=== PATIENT | male | born 1990 | race Two or more races ===

== ENCOUNTER 2019-06-07 12:56 | Emergency (ER) | payer BC ==
--- OUTSIDE RECORDS SUMMARY | 2019-06-07 13:00 | XMS REPORT | Continuity of Care Document ---
:1990 External Reference #:[id number] Author Name Bandar Svetlana Care Team Providers Name Role Phone Anabela Bright MD Primary Care Physician Unavailable Payers Date Identification Numbers Payment Provider Subscriber Effective: 2018 Policy Number: [id number] [employer] Saul Cates PayID: [id number] [address] [address] [place] [address] Social History Type Date Description Comments Sex Unknown Tobacco Use Start: Unknown Patient has never smoked Smoking Status Reviewed: 06/05/19 Patient has never smoked Vital Signs Date Vital Result Comment 06/05/2019 10:53am Height 69 inches 5'9" Weight 256.00 lb Heart Rate 69 /min BP Systolic 121 mmHg left arm sitting BP Diastolic 74 mmHg left arm sitting BMI (Body Mass Index) 37.8 kg/m2
[2019-06-07 13:10] VITALS: BP 119/67
--- NOTE | 2019-06-07 14:51 | UC ---
Abdominal Pain Male HPI - HPI Summary HPI Summary: Pt presents with 4 months of progressive abdominal pain. Pt states pain has increased in intensity and frequency this week. pt states feels nausea, no vomiting. STates stoools have been soft and has reported to his SO blood in the stool a few instances. no fever, chills pt states pain is diffuse, LUQ, RLQ no back radiation. No dysuria, hematuria No trauma no abd surgery. No h/o IVDA, No chronic meds, no prescribed medications medications reviewed - History of Current Complaint Chief Complaint: UCAbdominalPain Stated Complaint: ABD PAIN Time Seen by Provider: 06/07/19 14:35 Hx Obtained From: Patient, Family/Supervisor Sewing Room Timing: Intermittent Episodes Lasting: - hours, never resolves Severity Initially: Severe Severity Currently: Moderate Pain Intensity: 8 Pain Scale Used: 0-10 Numeric Character: Colicy, Sharp, Tearing - Allergies/Home Medications Allergies/Adverse Reactions: Allergies Allergy/AdvReac Type Severity Reaction Status Date / Time No Known Allergies Allergy Verified 06/06/19 08:38 Home Medications: Home Medications NK [No Home Medications Reported] 06/07/19 [History Confirmed 06/07/19] PMH/Surg Hx/FS Hx/Imm Hx Previously Healthy: Yes - Surgical History Surgical History: None - Family History Known Family History: Positive: Non-Contributory - Social History Occupation: Employed Full-time Lives: With Family Alcohol Use: Rare Substance Use Type: None Smoking Status (MU): Never Smoked Tobacco Review of Systems All Other Systems Reviewed And Are Negative: Yes Constitutional: Positive: Negative Skin: Positive: Negative Gastrointestinal: Positive: Abdominal Pain, Vomiting, Nausea Is Patient Immunocompromised?: No Physical Exam - Summary Physical Exam Summary: Vital Signs Reviewed: Yes A+Ox3, mild discomfort Eyes: Conjunctiva Clear, KENDELL. EOM intact and full ENT: Hearing grossly normal TM x 2 clear, mmoist, uvula midline, no exudate, no erythema Neck: Positive: Supple Respiratory: Positive: No respiratory distress, No accessory muscle use + CTA throughout no w/r Cardiovascular: RRR nl s1, s2 no m/r CBT <2 sec abd soft + present, decreased BS + TTP LUE, RLQ soft Musculoskeletal Exam: VANEGAS x 4 without difficulty Strength Intact, ROM Intact Neurological: Positive: Alert, + sensation throughout Psychological: Positive: Normal Response To sales account associate Skin: Positive: no rash, no ecchymosis Triage Information Reviewed: Yes Vital Signs: Initial Vital Signs Temp 98.3 F 06/07/19 13:04 Pulse 67 06/07/19 13:04 Resp 18 06/07/19 13:04 BP 119/67 06/07/19 13:04 Pulse Ox 99 06/07/19 13:04 Abd Pain Male Course/Dx - Course Course Of Treatment: Pt presents to with progressive pain in abd. PT states started 4 months ago - has dramatically increased x 4 days. no fever, chills + nausea, diarrhea pt scheduled for CT on Wednesday - pain increased at work today - boss sent for eval- pt unable to see PCP - came here VSS Pt with TTP LUQ, RLQ diffuse No RUQ poain reviewed U/S - fatty liver, no stones labs from this week wnl recommend pt to ED for further eval - pt and so in agreement spoke with JUSTO Roland - ED -aware and agree with plan - Differential Dx/Clinical Impression Provider Diagnosis: Abdominal pain, Blood in stool Discharge - Sign-Out/Discharge Documenting (check all that apply): Patient Departure All imaging exams completed and their final reports reviewed: No Studies - Discharge Plan Condition: Stable Disposition: HOME-RECOMMEND TO ED Patient Education Materials: Acute Abdominal Pain (ED) Referrals: No Primary Care Phys,NOPCP [Primary Care Provider] - Additional Instructions: The doctor that evaluated you today thinks that you need additional testing that can be completed the emergency department. It is recommended that you go directly to emergency department for further evaluation. This evaluation may include blood work or imaging. This testing will be directed and decided by the provider that evaluate you at the emergency department. If pain becomes worse, you feel lightheaded, you have uncontrolled vomiting, or you have any other concerns while you are being driven to emergency department as recommended to pullover and contact 911. - Billing Disposition and Condition Condition: STABLE Disposition: Home-Recommend to ED
== END 2019-06-07 15:37 | disposition home health service (06) ==
LOC: UCEAST 12:56
DX: R10.84 Generalized abdominal pain (principal); K92.1 Melena
CPT/HCPCS: 99212; G0463

== ENCOUNTER 2019-06-07 16:13 | Emergency (ER) | payer BC ==
[2019-06-07 18:43] LABS: ABS Basophils 0.1 10^3/ul (0-0.2); ABS Eosinophils 0.2 10^3/ul (0-0.6); ABS Lymphocytes 3.6 10^3/ul (1.0-4.8); ABS Monocytes 0.7 10^3/ul (0-0.8); ABS Neutrophils 6.5 10^3/ul (1.5-7.7); Eosinophil % 1.6 %; Hematocrit 43 % (42-52); Hemoglobin 15.2 g/dL (14.0-18.0); Lymphocyte % 32.2 %; Mean Corpuscular HGB Conc 35 g/dL (31-36); Mean Corpuscular Hemoglobin 31 pg (27-31); Mean Corpuscular Volume 88 fL (80-94); Mean Platelet Volume 6.6 fL (7.4-10.4); Nucleated Red Blood Cells % 0.1; Platelet Count 308 10^3/uL (150-450); Red Blood Count 4.91 10^6 /uL (4.18-5.48); Red Cell Distribution Width 13 % (10-15); White Blood Count 11.1 10^3/uL (3.5-10.8)
[2019-06-07] MEDS ORDERED: Ondansetron INJ* 2 MG/ML VIAL IV ONE (18:47)
[2019-06-07] MEDS ORDERED: NS 0.9% 1000 ML** 1,000 ML IV ONE (18:47)
[2019-06-07 18:55] LABS: Albumin 4.1 g/dL (3.2-5.2); Calcium 9.3 mg/dL (8.6-10.3); Potassium 3.9 mmol/L (3.5-5.0); Total Bilirubin 0.5 mg/dL (0.2-1.0)
[2019-06-07 19:02] LABS: Albumin/Globulin Ratio 1.1 (1-3); BUN/Creatinine Ratio 13.5 (8-20); C Reactive Protein 7.02 mg/L (<8.01); EGFR African American 113.7 (>60); Globulin 3.6 g/dL (2-4); Total Protein 7.7 g/dL (6.4-8.9)
--- NOTE | 2019-06-07 19:31 | ED ---
Abdominal Pain/Male - HPI Summary HPI Summary: Patient complains of epigastric and right lower quadrant pain 4 months with associated nausea and vomiting. Pain described as intermittent, worse after eating, progressive. Patient has been evaluated by primary care with negative ultrasound of gallbladder 4 months ago. No evaluation by GI. Denies fever, cough, sore throat, CP, SOB, diarrhea, change in urine, change in BM, penile or testicular symptoms. Medical history is none. Abdominal surgical history is none. - History of Current Complaint Chief Complaint: EDAbdPain Stated Complaint: ABD PAIN PER PT Time Seen by Provider: 06/07/19 18:43 Hx Obtained From: Patient Onset/Duration: Gradual Onset, Lasting Weeks Timing: Intermittent Severity Initially: Moderate Severity Currently: Moderate Pain Intensity: 6 Pain Scale Used: 0-10 Numeric Location: Discrete At: RLQ, Epigastric Radiates: No Character: Sharp, Dull Aggravating Factor(s): Food, Movement Alleviating Factor(s): Nothing Associated Signs And Symptoms: Positive: Nausea, Vomiting - Allergies/Home Medications Allergies/Adverse Reactions: Allergies Allergy/AdvReac Type Severity Reaction Status Date / Time No Known Allergies Allergy Verified 06/07/19 16:22 PMH/Surg Hx/FS Hx/Imm Hx Endocrine/Hematology History: Denies: Hx Diabetes, Hx Thyroid Disease Cardiovascular History: Denies: Hx Hypertension Respiratory History: Denies: Hx Asthma, Hx Chronic Obstructive Pulmonary Disease (COPD) GI History: Denies: Hx Ulcer History: Denies: Hx Dialysis Opthamlomology History: Denies: Hx Legally Blind Neurological History: Denies: Hx Dementia - Immunization History Immunizations Up to Date: Yes Infectious Disease History: No Infectious Disease History: Denies: Hx Hepatitis, Hx Human Immunodeficiency Virus (HIV), History Other Infectious Disease, Traveled Outside the [place] in Last 30 Days - Family History Known Family History: Positive: Other - NONCONTIBUTORY, Non-Contributory - Social History Alcohol Use: Rare Substance Use Type: Reports: None Smoking Status (MU): Never Smoked Tobacco Review of Systems Constitutional: Negative Eyes: Negative ENT: Negative Cardiovascular: Negative Respiratory: Negative Positive: Abdominal Pain, Vomiting, Nausea Genitourinary: Negative Musculoskeletal: Negative Skin: Negative Neurological: Negative Psychological: Normal All Other Systems Reviewed And Are Negative: Yes Physical Exam - Summary Physical Exam Summary: Abdomen tender in the epigastrium and right upper quadrant. Otherwise normal abdominal exam. Triage Information Reviewed: Yes Vital Signs On Initial Exam: Initial Vitals Temp Pulse Resp BP Pulse Ox 98.2 F 72 16 131/75 98 06/07/19 16:18 06/07/19 16:18 06/07/19 16:18 06/07/19 16:18 06/07/19 16:18 Vital Signs Reviewed: Yes Appearance: Positive: Well-Appearing Skin: Positive: Warm Head/Face: Positive: Normal Head/Face Inspection Eyes: Positive: Normal Neck: Positive: Supple Respiratory/Lung Sounds: Positive: Clear to Auscultation Cardiovascular: Positive: Normal Abdomen Description: Positive: Other: Musculoskeletal: Positive: Normal Neurological: Positive: Normal Psychiatric: Positive: Normal AVPU Assessment: Alert - Shila Coma Scale Best Eye Response: 4 - Spontaneous Best Motor Response: 6 - Obeys Commands Best Verbal Response: 5 - Oriented Coma Scale Total: 15 Diagnostics - Vital Signs Vital Signs Temp Pulse Resp BP Pulse Ox 06/07/19 16:18 98.2 F 72 16 131/75 98 - Laboratory Lab Results: Lab Results 06/07/19 06/07/19 06/07/19 Range/Units 18:35 18:35 18:35 WBC 11.1 H (3.5-10.8) 10^3/uL RBC 4.91 (4.18-5.48) 10^6 /uL Hgb 15.2 (14.0-18.0) g/dL Hct 43 (42-52) % MCV 88 (80-94) fL MCH 31 (27-31) pg MCHC 35 (31-36) g/dL RDW 13 (10-15) % Plt Count 308 (150-450) 10^3/uL MPV 6.6 L (7.4-10.4) fL Neut % (Auto) 58.6 % Lymph % (Auto) 32.2 % Carter % (Auto) 6.5 % Eos % (Auto) 1.6 % Baso % (Auto) 1.1 % Absolute Neuts (auto) 6.5 (1.5-7.7) 10^3/ul Absolute Lymphs (auto) 3.6 (1.0-4.8) 10^3/ul Absolute Monos (auto) 0.7 (0-0.8) 10^3/ul Absolute Eos (auto) 0.2 (0-0.6) 10^3/ul Absolute Basos (auto) 0.1 (0-0.2) 10^3/ul Absolute Nucleated RBC 0.0 10^3/ul Nucleated RBC % 0.1 Sodium 136 (135-145) mmol/L Potassium 3.9 (3.5-5.0) mmol/L Chloride 103 (101-111) mmol/L Carbon Dioxide 26 (22-32) mmol/L Anion Gap 7 (2-11) mmol/L BUN 13 (6-24) mg/dL Creatinine 0.96 (0.67-1.17) mg/dL Est GFR ( Amer) 113.7 (>60) Est GFR (Non-Af Amer) 94.0 (>60) BUN/Creatinine Ratio 13.5 (8-20) Glucose 81 (70-100) mg/dL Lactic Acid 1.5 (0.5-2.0) mmol/L Calcium 9.3 (8.6-10.3) mg/dL Total Bilirubin 0.50 (0.2-1.0) mg/dL AST 27 (13-39) U/L ALT 42 (7-52) U/L Alkaline Phosphatase 140 H (34-104) U/L C-Reactive Protein 7.02 (<8.01) mg/L Total Protein 7.7 (6.4-8.9) g/dL Albumin 4.1 (3.2-5.2) g/dL Globulin 3.6 (2-4) g/dL Albumin/Globulin Ratio 1.1 (1-3) Lipase 37 (11.0-82.0) U/L Result Diagrams: 06/07/19 18:35 06/07/19 18:35 Lab Statement: Any lab studies that have been ordered have been reviewed, and results considered in the medical decision making process. Abdominal Pain Male Course/Dx - Course Course Of Treatment: Patient complains of epigastric and right lower quadrant pain 4 months with associated nausea and vomiting. Pain described as intermittent, worse after eating, progressive. Patient has been evaluated by primary care with negative ultrasound of gallbladder 4 months ago. No evaluation by GI. Denies fever, cough, sore throat, CP, SOB, diarrhea, change in urine, change in BM, penile or testicular symptoms. Medical history is none. Abdominal surgical history is none. Vital signs within normal limits. Labs unremarkable. Ultrasound gallbladder negative. Rx for omeprazole. Rx for viscous lidocaine. Rx for Phenergan. Follow up with GI doctor Raffaele for further evaluation. Patient understands and improves with plan. - Diagnoses Provider Diagnoses: Abdominal pain, Nausea & vomiting Discharge - Sign-Out/Discharge Documenting (check all that apply): Patient Departure Patient Received Moderate/Deep Sedation with Procedure: No - Discharge Plan Condition: Stable Disposition: HOME Prescriptions: Omeprazole 20 mg PO DAILY 30 Days #30 capsule. Patient Education Materials: Abdominal Pain (ED), Acute Nausea and Vomiting (ED ) Referrals: No Primary Care Phys,NOPCP [Primary Care Provider] - Stanton Castorena MD [Medical Doctor] - Additional Instructions: Take Phenergan for nausea as directed. Take omeprazole daily for possible acid reflux. Take viscous lidocaine for breakthrough abdominal pain. Follow-up with GI Dr Castorena for further evaluation of recurrent abdominal pain. Return to the ED for any new or worsening symptoms. - Billing Disposition and Condition Condition: STABLE Disposition: Home
[2019-06-07 21:40] LABS: Urine Appearance Cloudy; Urine Bacteria 1+ (Absent); Urine Bilirubin Negative (Negative); Urine Blood Negative (Negative); Urine Color Yellow; Urine Glucose Negative (Negative); Urine Ketones Negative (Negative); Urine Nitrite Negative (Negative); Urine Protein Negative (Negative); Urine Red Blood Cell Trace(0-2/hpf) (Absent); Urine Specific Gravity 1.011 (1.010-1.030); Urine Squamous Epithelial Cell Present (Absent); Urine Urobilinogen Negative (Negative); Urine White Blood Cell 2+(11-20/hpf) (Absent)
[2019-06-07] MEDS ORDERED: Lidocaine 2% VISCOUS* 15 ML UDC PO ONE ×2 (21:54→22:12)
[2019-06-07] MEDS ORDERED: Al Hydrox/Mg Hydrox/Simet LIQ* 30 ML UDC PO ONE (21:55)
[2019-06-07 23:02] VITALS: BP 145/69
== END 2019-06-07 22:59 | disposition home or self-care (01) ==
LOC: ED 16:13
DX: R10.13 Epigastric pain (principal); R10.31 Right lower quadrant pain; R10.11 Right upper quadrant pain; R11.2 Nausea with vomiting, unspecified
CPT/HCPCS: 36415; 76705; 80053; 81003; 81015; 83605; 83690; 85025; 86140; 87086; 96361; 96374; 99283; J2405

== ENCOUNTER 2019-11-06 13:49 | Emergency (ER) | payer BC ==
[2019-11-06 13:58] VITALS: BP 119/66
--- NOTE | 2019-11-06 14:40 | UC ---
Ear Complaint HPI - HPI Summary HPI Summary: 29 year old male with no PMH presents with 3 days of L ear pain. Started after using headset while playing video games. no drainage, no fever, no chills, no throat pain, sinus congestion, cough. overall feeling well. no worse. Step son with similar symptoms. - History of Current Complaint Chief Complaint: UCEar Stated Complaint: EAR PAIN Time Seen by Provider: 11/06/19 14:03 Hx Obtained From: Patient Onset/Duration: Sudden Onset, Lasting Days - 3 Severity Initially: Moderate Severity Currently: Moderate Pain Intensity: 4 Pain Scale Used: 0-10 Numeric Associated Signs/Symptoms: Negative: Discharge, Hearing Loss, Foreign Body Sensation, Trauma to Ear, Swelling @, URI Symptoms - Allergies/Home Medications Allergies/Adverse Reactions: Allergies Allergy/AdvReac Type Severity Reaction Status Date / Time No Known Allergies Allergy Verified 11/06/19 13:58 Home Medications: Home Medications NK [No Home Medications Reported] 11/06/19 [History Confirmed 11/06/19] PMH/Surg Hx/FS Hx/Imm Hx Previously Healthy: Yes - Surgical History Surgical History: None - Family History Known Family History: Positive: Other - NONCONTIBUTORY, Non-Contributory - Social History Alcohol Use: Rare Substance Use Type: None Smoking Status (MU): Never Smoked Tobacco Review of Systems All Other Systems Reviewed And Are Negative: Yes Constitutional: Negative: Fever, Chills, Fatigue ENT: Positive: Ear Ache. Negative: Dental Pain, Sore Throat, Nasal Discharge, Sinus Congestion, Sinus Pain/Tenderness Respiratory: Negative: Shortness Of Breath Cardiovascular: Positive: Negative Gastrointestinal: Positive: Negative Psychological: Positive: Negative Is Patient Immunocompromised?: No Physical Exam Triage Information Reviewed: Yes Appearance: Well-Appearing, No Pain Distress, Well-Nourished Vital Signs: Initial Vital Signs Temp 98.4 F 11/06/19 13:54 Pulse 89 11/06/19 13:54 Resp 17 11/06/19 13:54 BP 119/66 11/06/19 13:54 Pulse Ox 100 11/06/19 13:54 Vital Signs Reviewed: Yes Eyes: Positive: Conjunctiva Clear ENT: Positive: Hearing grossly normal, Pharynx normal, TMs normal - minimal erythema noted around perimeter, very mild. no fluid posterior to TM. no bulging., Uvula midline. Negative: Pharyngeal erythema, TM bulging, TM dull, TM red, Tonsillar swelling, Tonsillar exudate, Sinus tenderness Neck: Positive: Supple, Nontender, No Lymphadenopathy. Negative: Nuchal Rigidity, Enlarged Nodes @ Respiratory: Positive: Chest non-tender, Lungs clear, Normal breath sounds, No respiratory distress, No accessory muscle use. Negative: Respiratory distress, Crackles, Rhonchi, Stridor, Wheezing Cardiovascular: Positive: RRR, No Murmur Neurological Exam: Normal Skin Exam: Normal Ear Complaint Course/Dx - Course Course Of Treatment: LIkely URI, viral - Over the counter medications for symptoms such as tylenol/ motrin for fever, chills pain. - Continue to monitor symptoms, if increased pain, fever, chill, return for further evaluation - Increase fluids, rest - Likely viral illness, symptoms typically continue for 5-7 days after onset - Differential Dx/Diagnosis Differential Diagnosis/HQI/PQRI: Otitis Externa, Otitis Media, URI Provider Diagnosis: Viral URI Discharge ED - Sign-Out/Discharge Documenting (check all that apply): Patient Departure All imaging exams completed and their final reports reviewed: No Studies - Discharge Plan Condition: Good Disposition: HOME Patient Education Materials: Upper Respiratory Infection (ED) Referrals: [facility] [Outside] No Primary Care Phys,NOPCP [Primary Care Provider] - Additional Instructions: - Over the counter medications for symptoms such as tylenol/ motrin for fever, chills pain. - Continue to monitor symptoms, if increased pain, fever, chill, return for further evaluation - Increase fluids, rest - Likely viral illness, symptoms typically continue for 5-7 days after onset - Billing Disposition and Condition Condition: GOOD Disposition: Home
== END 2019-11-06 14:52 | disposition home or self-care (01) ==
LOC: UCEAST 13:49
DX: J06.9 Acute upper respiratory infection, unspecified (principal); H92.02 Otalgia, left ear
CPT/HCPCS: 99211; G0463

== ENCOUNTER 2021-04-08 11:10 | Inpatient (IN) ==
[~2021-04-08 11:10] MED LIST: Buffered Lidocaine 1% SYRIN 1 ml INTRADERM ONE; DiMENhydriNATE IV 50 mg/ml 1 ml VIAL IV PUSH ONE; HYDROcodone/ACETAMIN 5/325 mg TAB PO PRN; Lactated Ringers 1000 ml BAG 1,000 ML IV SCH; Metoclopramide 5 MG/ML VIAL (10 mg) IV PRN; Naloxone 0.4 mg VIAL 0.4 mg/ml 1 ml VIAL IV PRN; Ondansetron 4 mg VIAL 2 MG/ML 2 ml VIAL IV PRN; fentaNYL 100 mcg/2 ml 50 MCG/ML VIAL IV PRN
[2021-04-08] MEDS ORDERED: DiMENhydriNATE IV 50 mg/ml 1 ml VIAL ONE (11:28)
[2021-04-08] MEDS ORDERED: ceFAZolin 2 GM PREMIX 2 GM/50 ML BAG ONE (11:28)
[2021-04-08] MEDS ORDERED: Heparin 5000 UNITS/ML 1 mL VIAL ONE (11:28)
[2021-04-08] MEDS ORDERED: ceFAZolin 1 GM ADVAN 1 GM ADDV.VIAL IVPB ONE (11:28)
[2021-04-08] MEDS ORDERED: fentaNYL 250 mcg/5 ml 50 MCG/ML 5 ml VIAL (250 MCG) ONE (13:25)
[2021-04-08] MEDS ORDERED: Midazolam 2 mg/2 ml VIAL 1 mg/ml 2 ml VIAL (2 mg) ONE (14:06)
[2021-04-08] MEDS ORDERED: Propofol 10 MG/ML 20 ML BTL ONE (14:08)
[2021-04-08] MEDS ORDERED: Rocuronium 50 mg VIAL 10 mg/ml 5 ml VIAL (50 mg) ONE ×2 (14:11→14:12)
[2021-04-08] MEDS ORDERED: Acetaminophen IV 1 GM/100ML 100 ML ONE (14:11)
[2021-04-08] MEDS ORDERED: Methylene Blue 0.5 % 50 MG/10 ML AMP IV ONE (14:16)
[2021-04-08] MEDS ORDERED: Bupivacaine 0.25% SDV 30 ML ONE (14:16)
[2021-04-08] MEDS ORDERED: Ondansetron 4 mg VIAL 2 MG/ML 2 ml VIAL ONE (15:00)
[2021-04-08] MEDS ORDERED: HYDROmorphone 1 MG/1 ML SYRINGE ONE (17:22)
[2021-04-08] MEDS ORDERED: HYDROcodone/ACET. 7.5/325 LIQ 15 ML UDC PO PRN (17:30)
[2021-04-08] MEDS ORDERED: HYDROmorphone 0.5 MG/0.5 ML SYRINGE IV SLOW PU PRN (17:30)
[2021-04-08] MEDS ORDERED: Ondansetron 4 mg VIAL 2 MG/ML 2 ml VIAL IV PRN (17:30)
[2021-04-08] MEDS ORDERED: diPHENhydraMINE IV 50 MG/ML 1 ml VIAL (BENADRYL) SLOW PUSH PRN (17:30)
[2021-04-08] MEDS ORDERED: HYDROmorphone 1 MG/1 ML SYRINGE IV SLOW PU PRN (17:30)
[2021-04-08] MEDS: Lactated Ringers 1000 ml BAG 1,000 ML IV SCH (20:05)
[2021-04-08] MEDS: Famotidine IV 10 MG/ML 2 ml VIAL (20 mg) IV SLOW PU SCH (20:45)
[2021-04-08] MEDS: Heparin 5000 UNITS/ML 1 mL VIAL SUBCUT SCH (22:17)
[2021-04-09] MEDS: Lactated Ringers 1000 ml BAG 1,000 ML IV SCH ×2 (02:09→09:58)
[2021-04-09] MEDS: Heparin 5000 UNITS/ML 1 mL VIAL SUBCUT SCH ×2 (06:11→14:06)
[2021-04-09 07:42] VITALS: BP 109/58
[2021-04-09] MEDS: Famotidine IV 10 MG/ML 2 ml VIAL (20 mg) IV SLOW PU SCH (08:56)
[2021-04-09] MEDS ORDERED: D5W 1/2 NS KCl 20 meq 1000 ml 1,000 ML IV SCH (18:00)
== END 2021-04-09 16:00 | disposition home or self-care (01) | DRG 403 ==
LOC: AA 11:10 → SSU 19:42
PROVIDERS: ADMIT Surgery; ATTEND Surgery